=== PATIENT | female | born 1970 | race Caucasian/White ===

== ENCOUNTER 2019-09-24 17:32 | Emergency (ER) | payer MEDICAID ==
[~2019-09-24] VITALS: Ht 167.6 cm; Wt 56.2 kg
[~2019-09-24 17:32] MED LIST: ASPI81TA52 PO; GABA-534 PO; INSU100V11 SQ; INSU100V9 SQ
[2019-09-24 18:25] LABS: BASOPHILS # (AUTO) 0.1 X10'3 (0-0.2); BASOPHILS % (AUTO) 0.8 % (0-1); EOSINOPHILS # (AUTO) 0.3 X10'3 (0-0.9); EOSINOPHILS % (AUTO) 2.8 % (0-6); HEMATOCRIT 45.1 % (35.0-45.0); HEMOGLOBIN 15.1 g/dl (12.0-16.0); LYMPHOCYTES # (AUTO) 2.3 X10'3 (1.1-4.8); MEAN CORPUSCULAR HEMOGLOBIN 30.2 PG (27.0-31.0); MEAN CORPUSCULAR HGB CONC 33.6 g/dL (33.0-36.5); MEAN CORPUSCULAR VOLUME 89.9 FL (78-98); MEAN PLATELET VOLUME 9.8 FL (7.4-10.4); MONOCYTES # (AUTO) 0.5 X10'3 (0-0.9); NEUTROPHILS # (AUTO) 7.2 X10'3 (1.8-7.7); NEUTROPHILS % (AUTO) 69.4 % (42-75); PLATELET COUNT 247 X10'3 (140-440); RED BLOOD COUNT 5.01 X10'6 (4.20-5.60); RED CELL DISTRIBUTION WIDTH 13.3 % (11.5-14.5); WHITE BLOOD COUNT 10.4 X10'3 (4.5-11.0)
[2019-09-24 18:38] LABS: ALANINE AMINOTRANSFERASE 11 U/L (12-78); ALBUMIN 3.5 G/DL (3.4-5.0); ALBUMIN/GLOBULIN RATIO 0.8 (1.1-1.5); ALKALINE PHOSPHATASE 93 IU/L (46-116); ANION GAP 12 (8-16); ASPARTATE AMINO TRANSFERASE 16 U/L (10-37); BILIRUBIN,TOTAL 0.5 MG/DL (0.1-1.0); BLOOD UREA NITROGEN 24 MG/DL (7-18); BUN/CREATININE RATIO 25.3 (6.6-38.0); CALCIUM 9.3 MG/DL (8.5-10.1); CHLORIDE 103 MMOL/L (99-107); CREATININE 0.95 MG/DL (0.40-0.90); GLUCOSE 249 MG/DL (70-104); SODIUM 142 MMOL/L (135-145); TOTAL PROTEIN 7.8 G/DL (6.4-8.2); eGFR 62 ML/MIN
[2019-09-24 19:37] LABS: CLARITY,URINE CLOUDY (Clear); COLOR,URINE YELLOW (Yellow); GLUCOSE, URINE NEGATIVE (Neg); KETONES,URINE 15 mg/dl (Neg); LEUKOCYTE ESTERASE ,URINE SMALL (Neg); NITRITES, URINE POSITIVE (Neg); OCCULT BLOOD,URINE MODERATE (Neg); PH,URINE 5.5 (4.8-8.0); PROTEIN,URINE 100 mg/dl (Neg)
[2019-09-24 19:41] LABS: UA COLLECTION TYPE CLN CATCH MIDSTREAM
[2019-09-24 19:58] LABS: RBC,URINE 0-2 /HPF (0-2); WBC,URINE TNTC /HPF (0-4)
[2019-09-24 19:59] LABS: BACTERIA,URINE 3+ /HPF (Neg); MUCUS STRANDS FEW /LPF (Neg); SQUAMOUS EPITHELIAL CELL,UR MODERATE /LPF (FEW)
[2019-09-24] MEDS ORDERED: ondansetron/PF 4mg/2ml inj IV ONE (20:15)
[2019-09-24] MEDS ORDERED: CefTRIAXone/D5W-Rocephin 1gm 50 ML IV ONE (20:15)
[2019-09-24] MEDS ORDERED: ketorolac trometh. 30mg/ml inj. IV ONE (20:15)
[2019-09-24] MEDS ORDERED: normal saline 1000ML IV soln IVB ONE (20:15)
--- NOTE | 2019-09-24 20:35 | NUR ---
Pt moved from [facility] into room 14 so her IV access can be started and IV fluids and medications given.
[2019-09-24] MEDS ORDERED: ONDA8TAB6 PO (21:02)
[2019-09-24] MEDS ORDERED: LOPE2TAB25 PO (21:02)
[2019-09-24] MEDS ORDERED: NITR100C6 PO (21:02)
[2019-09-24 21:34] VITALS: BP 130/80
== END 2019-09-24 21:39 | disposition home or self-care (01) ==
LOC: ER 17:33
DX: K52.9 Noninfective gastroenteritis and colitis, unspecified (principal); R42 Dizziness and giddiness; E78.00 Pure hypercholesterolemia, unspecified; E11.9 Type 2 diabetes mellitus without complications; Z56.0 Unemployment, unspecified; Z90.49 Acquired absence of other specified parts of digestive tract; Z98.890 Other specified postprocedural states; Z98.51 Tubal ligation status; Z79.82 Long term (current) use of aspirin; Z79.899 Other long term (current) drug therapy; Z79.4 Long term (current) use of insulin
CPT/HCPCS: 36415; 80053; 81001; 82948; 85025; 87077; 87088; 87186; 96365; 96375; 99284; J0696; J1885; J2405; J7030

== ENCOUNTER 2020-02-18 05:27 | Day surgery (SDC) | payer MEDICAID ==
[2020-02-12 12:15] LABS: BASOPHILS # (AUTO) 0.1 X10'3 (0-0.2); EOSINOPHILS # (AUTO) 0.3 X10'3 (0-0.9); EOSINOPHILS % (AUTO) 2.5 % (0-6); LYMPHOCYTES # (AUTO) 2.3 X10'3 (1.1-4.8); MEAN CORPUSCULAR HGB CONC 33.5 g/dL (33.0-36.5); MEAN CORPUSCULAR VOLUME 92.3 FL (78-98); MEAN PLATELET VOLUME 9.7 FL (7.4-10.4); MONOCYTES # (AUTO) 0.6 X10'3 (0-0.9); NEUTROPHILS # (AUTO) 7.5 X10'3 (1.8-7.7); NEUTROPHILS % (AUTO) 69.5 % (42-75); PRE OP HEMATOCRIT 42.6 % (35.0-45.0); PRE OP HEMOGLOBIN 14.3 g/dL (12.0-16.0); PRE OP PLATELET COUNT 224 X10'3 (140-440); RED BLOOD COUNT 4.61 X10'6 (4.20-5.60); RED CELL DISTRIBUTION WIDTH 13.7 % (11.5-14.5)
[2020-02-12 12:25] LABS: ALBUMIN 3.7 G/DL (3.4-5.0); ALBUMIN/GLOBULIN RATIO 0.9 (1.1-1.5); ALKALINE PHOSPHATASE 100 IU/L (46-116); BLOOD UREA NITROGEN 20 MG/DL (7-18); BUN/CREATININE RATIO 16.8 (6.6-38.0); CALCIUM 9.4 MG/DL (8.5-10.1); CHLORIDE 99 MMOL/L (99-107); CREATININE 1.19 MG/DL (0.40-0.90); PRE OP ALT 19 U/L (30-65); PRE OP ANION GAP 9 (8-16); PRE OP AST 16 U/L (10-37); PRE OP BILIRUB, TOTAL 0.4 MG/DL (0.0-1.0); PRE OP POTASSIUM 5.1 MMOL/L (3.4-5.1); PRE OP SODIUM 133 MMOL/L (135-145); TOTAL CARBON DIOXIDE 24.6 MMOL/L (24-32); eGFR 48 ML/MIN
[2020-02-12 12:30] LABS: PRE OP GLUCOSE 434 MG/DL (70-104)
[~2020-02-18] VITALS: Ht 167.6 cm; Wt 56.7 kg
[~2020-02-18 05:27] MED LIST changes: -ASPI81TA52 PO; -INSU100V9 SQ; +LANTUS SQ; +ringers solution, lacted 1,000 ML IV SCH
[2020-02-18 05:30] VITALS: BP 131/85
[2020-02-18] MEDS ORDERED: famotidine 20mg tablet PO ONE (05:30)
[2020-02-18] MEDS ORDERED: LIDOcaine 1% (10mg/ml) 2ml vial ONE (05:35)
[2020-02-18] MEDS ORDERED: triamcinolone acetonide 40mg/ml inj ONE (06:44)
[2020-02-18] MEDS ORDERED: BUPIVAcaine/PF 2.5 mg/ml (0.25%) 30ml vial ONE (06:44)
[2020-02-18] MEDS ORDERED: LIDOcaine 1% 30ml preserv. free vial ONE (06:45)
[2020-02-18] MEDS ORDERED: ringers solution, lacted 1,000 ML IV SCH (07:03)
[2020-02-18] MEDS ORDERED: ondansetron/PF 4mg/2ml inj IV PRN (07:05)
[2020-02-18] MEDS ORDERED: morphine 2 MG/ML inj. syringe IV PRN (07:05)
[2020-02-18] MEDS ORDERED: hydrALAZINE 20mg/ml inj. IV PRN (07:05)
[2020-02-18] MEDS ORDERED: fentaNYL/PF 50MCG/1 ML 2ML syringe IV PRN ×2 (07:05)
[2020-02-18] MEDS ORDERED: labetalol 20mg/4ml (5mg/ml) syringe IV PRN (07:05)
[2020-02-18] MEDS ORDERED: morphine 4 MG/ML inj SYRINge IV PRN (07:05)
[2020-02-18] MEDS ORDERED: fentaNYL/PF 50MCG/1 ML 2ML syringe ONE (07:10)
[2020-02-18] MEDS ORDERED: midazolam 2 mg/2 ml injection ONE (07:10)
[2020-02-18] MEDS ORDERED: dexamethasone sod phosphate 4mg/ml inj. ONE (07:13)
[2020-02-18] MEDS ORDERED: ROPIVAcaine 0.5% (5mg/ml) 30ml vial ONE (07:13)
[2020-02-18] MEDS ORDERED: LIDOcaine 2% (20mg/ml) 5ml vial ONE (07:14)
[2020-02-18] MEDS ORDERED: propofol inj 20 ML IV ONE (07:14)
[2020-02-18] MEDS ORDERED: flumazenil 0.1 mg/ml inj. IV ONE (07:35)
[2020-02-18] MEDS ORDERED: naloxone 0.4 mg/ml inj ONE (07:37)
[2020-02-18] MEDS ORDERED: HYDROcodone/acetaminophen 10/325mg tab PO PRN (07:45)
[2020-02-18 07:47] VITALS: BP 114/71
--- NOTE | 2020-02-18 07:47 | NUR ---
Received from OR via [facility], accompanied by Anesthesiologist DR KNAPP and report given by Anesthesiolgist. PATIENT A&OX4, DENIES PAIN, V/S WNL, NEUROVASCULAR CHECKS INTACT, 20G PIV LUE, SCD ON, no dressing or incision to shoulder but ice bag applied.
[2020-02-18 07:50] VITALS: BP 125/70
[2020-02-18 08:00] VITALS: BP 124/74
[2020-02-18 08:10] VITALS: BP 132/72
[2020-02-18 08:20] VITALS: BP 126/75
[2020-02-18] MEDS ORDERED: LIDOcaine 1% 30ml preserv. free vial IJ ONE (08:29)
[2020-02-18] MEDS ORDERED: triamcinolone acetonide 40mg/ml inj IJ ONE (08:31)
--- NOTE | 2020-02-18 08:45 | NUR ---
BG checked and 128, pt states she's comfortable and does not feel hypoglycemic.
--- NOTE | 2020-02-18 09:07 | NUR ---
PATIENT A&OX4, DENIES PAIN, V/S WNL, NEUROVASCULAR CHECKS INTACT, 20G PIV LUE D/C, SCD OFF, PT TO GO HOME WITH ICEBAG. I HAVE REVIEWED D/C INSTRUCTIONS WITH PATIENT AND THEY HAVE VERBALIZED UNDERSTANDING. PATIENT D/C HOME WITH ALL BELONGINGS AND FAMILY GAVE TRANSPORT HOME. Pt wasn't sure if pain meds had been received, Dr Poe states to call office if meds haven't been received. Left message with medical assisting program director to double check that pain meds have been prescribed, asked her to call patient and confirm.
--- NOTE | 2020-02-18 09:08 | NUR ---
Pt sent home with juice and crackers in case she feels blood sugar drops. Had apple juice prior to leaving.
== END 2020-02-18 09:07 | disposition home or self-care (01) ==
LOC: PAS 05:27
PROVIDERS: ATTEND Orthopaedic Surgery
DX: M75.01 Adhesive capsulitis of right shoulder (principal); M79.18 Myalgia, other site; M24.111 Other articular cartilage disorders, right shoulder; M25.511 Pain in right shoulder; G89.18 Other acute postprocedural pain; Z79.899 Other long term (current) drug therapy; Z98.890 Other specified postprocedural states; Z11.59 Encounter for screening for other viral diseases
CPT/HCPCS: 23700; 36415; 64415; 80053; 82948; 85025; 93005; J1100; J2001; J2250; J2310; J2704; J3010; J3301; J3490; U0003; A4215; A4618; J2795; J7120

== ENCOUNTER 2020-12-15 10:03 | Day surgery (SDC) | payer MEDICAID ==
[2020-12-09 14:29] LABS: BASOPHILS # (AUTO) 0.1 X10'3 (0-0.2); BASOPHILS % (AUTO) 0.7 % (0-1); EOSINOPHILS # (AUTO) 0.2 X10'3 (0-0.9); EOSINOPHILS % (AUTO) 1.9 % (0-6); LYMPHOCYTES # (AUTO) 1.9 X10'3 (1.1-4.8); LYMPHOCYTES % (AUTO) 21.6 % (21-51); MEAN CORPUSCULAR HEMOGLOBIN 30.8 PG (27.0-31.0); MEAN CORPUSCULAR HGB CONC 33.3 g/dL (33.0-36.5); MEAN CORPUSCULAR VOLUME 92.6 FL (78-98); MEAN PLATELET VOLUME 9.8 FL (7.4-10.4); MONOCYTES # (AUTO) 0.6 X10'3 (0-0.9); MONOCYTES % (AUTO) 6.4 % (2-12); NEUTROPHILS # (AUTO) 6.1 X10'3 (1.8-7.7); NEUTROPHILS % (AUTO) 69.4 % (42-75); PRE OP HEMATOCRIT 40.1 % (35.0-45.0); PRE OP HEMOGLOBIN 13.3 g/dL (12.0-16.0); PRE OP PLATELET COUNT 242 X10'3 (140-440); RED BLOOD COUNT 4.33 X10'6 (4.20-5.60); RED CELL DISTRIBUTION WIDTH 13.3 % (11.5-14.5)
[2020-12-09 14:44] LABS: ALBUMIN 3.6 G/DL (3.4-5.0); ALBUMIN/GLOBULIN RATIO 0.8 (1.1-1.5); ALKALINE PHOSPHATASE 105 IU/L (46-116); BLOOD UREA NITROGEN 27 MG/DL (7-18); BUN/CREATININE RATIO 27.3 (6.6-38.0); CALCIUM 9.3 MG/DL (8.5-10.1); CHLORIDE 101 MMOL/L (99-107); CREATININE 0.99 MG/DL (0.40-0.90); PRE OP ALT 17 U/L (30-65); PRE OP ANION GAP 8 (8-16); PRE OP AST 22 U/L (10-37); PRE OP BILIRUB, TOTAL 0.4 MG/DL (0.0-1.0); PRE OP SODIUM 138 MMOL/L (135-145); TOTAL CARBON DIOXIDE 28.8 MMOL/L (24-32); TOTAL PROTEIN 7.9 G/DL (6.4-8.2); eGFR 59 ML/MIN
[2020-12-09 14:45] LABS: PRE OP GLUCOSE 244 MG/DL (70-104)
[~2020-12-15] VITALS: Ht 167.6 cm; Wt 61.8 kg
[2020-12-15] VITALS (9 sets, daily range): BP systolic 147–165; BP diastolic 76–94
[~2020-12-15 10:03] MED LIST changes: +LISI-790 PO; +cefazolin/dext.iso 2gm/100ml IV ONE; +famotidine 20mg tablet PO ONE
[2020-12-15] MEDS ORDERED: dextrose 5%-lactated ringers 1,000 ML IV ONE (10:50)
[2020-12-15] MEDS ORDERED: LIDOcaine 1%/PF 5ML 10 MG/ML VIAL ONE (13:20)
[2020-12-15] MEDS ORDERED: ROPIVAcaine 0.5% (5mg/ml) 30ml vial ONE (13:20)
[2020-12-15] MEDS ORDERED: sevoflurane 250ml liquid IH ONE (13:20)
[2020-12-15] MEDS ORDERED: dexamethasone sod phosphate 10mg/ml inj ONE (13:20)
[2020-12-15] MEDS ORDERED: ondansetron/PF 4mg/2ml inj ONE (13:20)
[2020-12-15] MEDS ORDERED: fentaNYL/PF 50MCG/1 ML 2ML syringe ONE (13:33)
[2020-12-15] MEDS ORDERED: MIDAZolam 1 MG/ML 5ML VIAL ONE (13:33)
--- NOTE | 2020-12-15 13:37 | NUR ---
TWO BAGS OF PATIENT'S BELONGINGS TRANSFERRED TO PACU, ONE WITH PATIENT'S PURSE WITH WALLETS AND OTHER VALUABLES AND PATIENT'S BLANKET, PATIENT'S MOTHER WAS SUPPOSED TO TAKE THE PURSE WITH VALUABLES WITH HER BUT SHE LEFT WITHOUT IT. Addendum: 12/15/20 at 1340 by Lay Jones RN Amended: Links added.
[2020-12-15] MEDS ORDERED: propofol inj 20 ML IV ONE (13:38)
[2020-12-15] MEDS ORDERED: BUPIVAcaine/PF 2.5 mg/ml (0.25%) 30ml vial ONE (13:43)
[2020-12-15] MEDS ORDERED: ondansetron/PF 4mg/2ml inj IV PRN (14:35)
[2020-12-15] MEDS ORDERED: meperidine/PF 25mg/ml syringe IV PRN ×3 (14:35)
[2020-12-15] MEDS ORDERED: ROPIVAcaine 0.2%/PF PUMP/bolus 545 ML INTERSCALE SCH (14:35)
[2020-12-15] MEDS ORDERED: ringers solution, lacted 1,000 ML IV SCH (14:35)
[2020-12-15] MEDS ORDERED: morphine 4 MG/ML inj SYRINge IV PRN (14:35)
[2020-12-15] MEDS ORDERED: proCHLORperazine 10 MG/2 ml inj IV PRN (14:35)
[2020-12-15] MEDS ORDERED: morphine 2 MG/ML inj. syringe IV PRN (14:35)
[2020-12-15] MEDS ORDERED: ROPIVAcaine 0.2% (10 MG/5 ML) BOLUS INJECTION INTERSCALE PRN (14:35)
--- NOTE | 2020-12-15 15:20 | NUR ---
Received from OR via BED , accompanied by Anesthesiologist and report given by Anesthesiolgist. PATIENT WAKING UP, NO S/S OF PAIN, V/S WNL, CSM INTACT, SCD ON, PIV TO LUE, DRESSING TO RIGHT SHOULDER CDI WITH SLING AND ONQ BALL AT 2ML/HR
[2020-12-15] MEDS ORDERED: traMADol 50MG tablet PO PRN (15:25)
--- NOTE | 2020-12-15 16:20 | NUR ---
PATIENT A&OX4, DENIES PAIN, V/S WNL, CSM INTACT, SCD OFF, PIV TO LUE D/C, DRESSING TO RIGHT SHOULDER CDI WITH SLING AND ONQ BALL AT 2ML/HR. I HAVE REVIEWED D/C INSTRUCTION AND GAVE HANDOUT TO ONQ BALL MANAGEMENT AND PATIENT VERBALIZED UNDERSTANDING. HER BG IS 80, SHE IS ANGRY DR MADRIGAL DID NOT COME SPEAK WITH HER AFTER SURGERY. PATIENT D/C HOME WITH ALL BELONGINGS AND HER FAMILY GAVE TRANSPORT.
== END 2020-12-15 16:20 | disposition home or self-care (01) ==
LOC: PAS 10:03
PROVIDERS: ATTEND Orthopaedic Surgery
DX: M75.01 Adhesive capsulitis of right shoulder (principal); M75.41 Impingement syndrome of right shoulder; M75.51 Bursitis of right shoulder; M65.811 Other synovitis and tenosynovitis, right shoulder; F17.210 Nicotine dependence, cigarettes, uncomplicated; G43.909 Migraine, unspecified, not intractable, without status migrainosus; E10.9 Type 1 diabetes mellitus without complications; I10 Essential (primary) hypertension; Z20.822 Contact with and (suspected) exposure to COVID-19; Z79.899 Other long term (current) drug therapy; Z98.890 Other specified postprocedural states; Z79.4 Long term (current) use of insulin
CPT/HCPCS: 29820; 29823; 29826; 36415; 64416; 76937; 80053; 82948; 85025; 93005; J1100; J2250; J2405; J2704; J2795; J3010; J3490; J7120; J7121; U0003; U0005; A4565; A4618; A6449; A7000

== ENCOUNTER 2023-10-12 03:22 | Emergency (ER) | payer MEDICAID ==
[~2023-10-12] VITALS: Ht 170.2 cm; Wt 63.4 kg
[~2023-10-12 03:22] MED LIST changes: -GABA-534 PO; +GABA-535 PO; -LISI-790 PO; +LISI5TAB22 PO; -cefazolin/dext.iso 2gm/100ml IV ONE; -famotidine 20mg tablet PO ONE; -ringers solution, lacted 1,000 ML IV SCH
[2023-10-12 04:13] LABS: BILIRUBIN,URINE NEGATIVE (Neg); CLARITY,URINE CLEAR (Clear); COLOR,URINE STRAW (Yellow); GLUCOSE, URINE 500 mg/dl (Neg); KETONES,URINE 15 mg/dl (Neg); LEUKOCYTE ESTERASE ,URINE TRACE (Neg); NITRITES, URINE NEGATIVE (Neg); OCCULT BLOOD,URINE TRACE-INTACT (Neg); PH,URINE 5.5 (4.8-8.0); PROTEIN,URINE NEGATIVE (Neg); UROBILINOGEN,URINE 0.2 E.U/dL (0.2-1.0)
[2023-10-12] MEDS: LORazepam 1 MG tablet PO ONE ×2 (04:13→20:20)
[2023-10-12 04:14] LABS: UA COLLECTION TYPE CLN CATCH MIDSTREAM
[2023-10-12 04:23] LABS: BACTERIA,URINE FEW /HPF (Neg); MUCUS STRANDS FEW /LPF (Neg); RBC,URINE 0-2 /HPF (0-2); SQUAMOUS EPITHELIAL CELL,UR FEW /LPF (FEW); WBC CLUMPS,URINE FEW /HPF (NEGATIVE)
[2023-10-12 04:24] LABS: YEAST FEW /HPF (NEGATIVE)
[2023-10-12 04:27] LABS: URINE AMPHETAMINE SCREEN NEGATIVE (Neg); URINE BARBITUATE SCREEN NEGATIVE (Neg); URINE BENZODIAZEPINES SCREEN NEGATIVE (Neg); URINE CANNABINOID SCREEN NEGATIVE (Neg); URINE COCAINE SCREEN NEGATIVE (Neg); URINE METHADONE SCREEN NEGATIVE (Neg); URINE OPIATE SCREEN NEGATIVE (Neg); URINE PHENCYCLIDINE SCREEN NEGATIVE (Neg)
[2023-10-12 04:33] LABS: BASOPHILS # (AUTO) 0.1 X10'3 (0-0.2); BASOPHILS % (AUTO) 0.7 % (0-1); EOSINOPHILS # (AUTO) 0.1 X10'3 (0-0.9); EOSINOPHILS % (AUTO) 1.7 % (0-6); HEMOGLOBIN 11.7 g/dl (12.0-16.0); LYMPHOCYTES % (AUTO) 23.4 % (21-51); MEAN CORPUSCULAR HEMOGLOBIN 29.5 PG (27.0-31.0); MEAN CORPUSCULAR HGB CONC 33.4 g/dL (33.0-36.5); MEAN CORPUSCULAR VOLUME 88.5 FL (78-98); MEAN PLATELET VOLUME 9.7 FL (7.4-10.4); MONOCYTES # (AUTO) 0.5 X10'3 (0-0.9); MONOCYTES % (AUTO) 6.1 % (2-12); NEUTROPHILS # (AUTO) 5.9 X10'3 (1.8-7.7); NEUTROPHILS % (AUTO) 68.1 % (42-75); PLATELET COUNT 196 X10'3 (140-440); RED BLOOD COUNT 3.96 X10'6 (4.20-5.60); RED CELL DISTRIBUTION WIDTH 13.4 % (11.5-14.5); WHITE BLOOD COUNT 8.6 X10'3 (4.5-11.0)
[2023-10-12 04:56] LABS: ALBUMIN 3.3 G/DL (3.4-5.0); ANION GAP 12 (8-16); BLOOD UREA NITROGEN 17 MG/DL (7-18); BUN/CREATININE RATIO 18.9 (10.0-20.0); CALCIUM 7.8 MG/DL (8.5-10.1); CHLORIDE 102 MMOL/L (99-107); ETHANOL < 10 MG/DL (<10); GLUCOSE 303 MG/DL (70-104); POTASSIUM 4.1 MMOL/L (3.5-5.1); SODIUM 138 MMOL/L (135-145); THYROID STIMULATING HORMONE 3.11 ulU/ml (0.34-4.50); TOTAL CARBON DIOXIDE 24.3 MMOL/L (24-32); eCRCL 69 ML/MIN; eGFR 65 ML/MIN
[2023-10-12] MEDS ORDERED: DEXTROSE 15 GM of carb/4 tabs (each vial/BOTTLE has 4 tablets) PO PRN ×2 (05:50)
[2023-10-12] MEDS ORDERED: glucagon, human recombinant 1mg kit SUBCUT PRN (05:50)
[2023-10-12] MEDS ORDERED: dextrose 50%-water 50ml dispensing syringe IV PRN ×2 (05:50)
[2023-10-12] MEDS ORDERED: CELE-193 PO (07:10)
[2023-10-12] MEDS ORDERED: GABA800T11 PO (07:10)
[2023-10-12] MEDS: sulfamethoxazole/trimethoprim DS (800/160mg) tablet PO SCH (08:57)
[2023-10-12] MEDS: lisinopril 5mg tablet PO SCH (09:01)
[2023-10-12] MEDS: celeCOXIB 100mg capsule PO SCH (09:04)
[2023-10-12] MEDS: insulin Lispro (HumaLOG) vial - multi-dose SQ SCH (12:53)
[2023-10-12] MEDS: gabapentin 400mg capsule PO SCH (13:13)
[2023-10-12] MEDS: insulin glargine (Lantus) pen - multi-dose SQ SCH (20:27)
[2023-10-13] MEDS: LORazepam 1 MG tablet PO PRN (08:48)
[2023-10-13 10:45] VITALS: BP 122/45; PULSE 57; RESP 18; TEMP 98.6; O2SAT 98
== END 2023-10-13 10:32 ==
LOC: ER 03:23
DX: R45.851 Suicidal ideations (principal); Z20.822 Contact with and (suspected) exposure to COVID-19; N39.0 Urinary tract infection, site not specified; E78.00 Pure hypercholesterolemia, unspecified; J40 Bronchitis, not specified as acute or chronic; E11.9 Type 2 diabetes mellitus without complications; Z88.5 Allergy status to narcotic agent; Z79.2 Long term (current) use of antibiotics; Z79.899 Other long term (current) drug therapy; Z98.890 Other specified postprocedural states; Z98.51 Tubal ligation status; Z87.891 Personal history of nicotine dependence
CPT/HCPCS: 36415; 80048; 80305; 80320; 81001; 82948; 84443; 85025; 87811; 96372; 99285; J1815